=== PATIENT | male | born 1980 | race Caucasian/White ===

== ENCOUNTER 2018-03-01 06:00 | Day surgery (SDC) | payer OTHER ==
[~2018-03-01 06:00] MED LIST: CEFAZOLIN SODIUM1 GM IV; DURICEF 500 MG CAPSULE PO; GABAPENTIN800 MG PO; OXYC1TAB9 PO
[2018-03-01] MEDS ORDERED: DUI500 PO (10:04)
[2018-03-01] MEDS ORDERED: OXYC1TAB9 PO (10:05)
== END 2018-03-01 12:25 | disposition home or self-care (01) ==
LOC: CIR.AMB 06:00
DX: M75.01 Adhesive capsulitis of right shoulder (principal); S46.811A Strain of other muscles, fascia and tendons at shoulder and upper arm level, right arm, initial encounter; M19.011 Primary osteoarthritis, right shoulder